=== PATIENT | male | born 1945 | race Caucasian/White ===

== ENCOUNTER 2019-04-09 18:32 | Inpatient (IN) | payer OTHER ==
[~2019-04-09] VITALS: Ht 177.8 cm; Wt 113.3 kg
[2019-04-09 19:03] LABS: BASOPHILS ABSOLUTE AUTO 0.05 K/mm3 (0.00-0.23); BASOPHILS PERCENT AUTO 0 % (0-2); EOSINOPHILS PERCENT AUTO 0 % (0-6); Hematocrit 52.1 % (37.0-53.0); Hemoglobin 17.4 g/dL (13.5-17.5); IMMATURE GRAN ABSOLUTE AUTO 0.12 K/mm3 (0.00-0.10); IMMATURE GRAN PERCENT AUTO 1 % (0-1); LYMPHOCYTES ABSOLUTE AUTO 1.28 K/mm3 (0.84-5.20); LYMPHOCYTES PERCENT AUTO 7 % (21-46); MONOCYTES PERCENT AUTO 5 % (4-13); Mean Corpuscular HGB 32.6 pg (26.0-34.0); Mean Corpuscular HGB Conc 33.4 g/dL (31.5-36.5); Mean Corpuscular Volume 98 fL (80-100); Mean Platelet Volume 9.5 fL (9.1-12.4); NEUTROPHILS ABSOLUTE AUTO 16.33 K/mm3 (1.96-9.15); NEUTROPHILS PERCENT AUTO 87 % (41-73); Platelet Count 243 K/mm3 (150-400); RDW Coefficient Variation 12.1 % (11.7-14.2); RDW Standard Deviation 43.9 fL (35.1-46.3); Red Blood Cell Count 5.33 M/mm3 (4.30-5.90); White Blood Cell Count 18.78 K/mm3 (4.00-11.30)
[2019-04-09] MEDS ORDERED: METO100 PO (19:06)
[2019-04-09] MEDS ORDERED: AMLODIPINE BESY10 MG PO (19:06)
[2019-04-09 19:17] LABS: International Normalized Ratio 1.07; Prothrombin Time Results 11.4 Sec (9.7-11.5)
[2019-04-09 19:20] LABS: Alanine Aminotransfer (ALT/SGP 34 U/L (12-78); Albumin, Blood 3.6 g/dL (3.4-5.0); Albumin/Globulin Ratio 0.7 (0.8-1.8); Alk Phos 57 U/L (50-136); Anion Gap 7 mmol/L (6-16); Aspartate Aminotrans (AST/SGOT 132 U/L (12-37); Bilirubin, Total 1.3 mg/dL (0.1-1.0); Blood Urea Nitrogen 19 mg/dL (8-24); Bun/Creatinine Ratio 15.2 (12.0-20.0); CO2, Blood 25 mmol/L (21-32); Calcium, Blood 9.1 mg/dL (8.5-10.1); Chloride, Blood 103 mmol/L (98-108); Creatinine, Blood 1.25 mg/dL (0.60-1.20); Ethanol (Alcohol), Blood, Med <3 mg/dL; Glomerular Filtration Rate >60 (60-); Glucose, Blood 168 mg/dL (70-99); Potassium, Blood 4.7 mmol/L (3.5-5.5); Sodium, Blood 135 mmol/L (136-145); Total Protein, Blood 8.6 g/dL (6.4-8.2)
[2019-04-09 19:57] LABS: Troponin I 0.075 ng/mL (0.000-0.040)
[2019-04-09 20:32] LABS: Creatine Kinase MB 61.4 ng/mL (0.0-3.6)
[2019-04-10 02:24] LABS: CHOL/HDL RATIO 7.3; Cholesterol 196 mg/dL (50-200); HDL Cholesterol 27 mg/dL (>39); LDL/HDL RATIO 4.9; Low Density Lipoprotein Chol 133 mg/dL (0-110); Triglycerides 181 mg/dL (30-160); Troponin I 0.178 ng/mL (0.000-0.040); Very Low Density Lipoprot Chol 36 mg/dL (6-32)
[2019-04-10 02:35] LABS: CPK Creatine Kinase 5851 U/L (39-308)
--- NOTE | 2019-04-10 06:30 | NUR ---
SHIFT SUMMARY PT ARRIVED FROM ER IN DISCOMFORT. ORDERS FOR PAIN MEDS WERE OBTAINED AND PT EVENTUALLY BECAME COMFORTABLE. PT HAS SHARP PAIN NOTED IN MID L FA AREA. PT IS CONCERNED THAT HE MAY HAVE A FX. PT HAS GOOD SENSATION IN L ARM AND LEG. PT HAS SOME NOTED GROSS MOVEMENT ON L SIDE. PT HAS NOTED R SIDE FACIAL DROOP. PT HAS REMAINED NPO. PT DENIES ANY SOB. PT CURRENTLY RESTING AND IN NO DISTRESS. CALL LIGHT IN REACH.
--- NOTE | 2019-04-10 12:57 | NUR ---
ECHOCARDIOGRAM COMPLETE
--- NOTE | 2019-04-10 14:14 | NUR ---
PATIENT COMPLAINED OF LEFT ARM PAIN THIS AFTERNOON. TREATED PER EMAR. IS AT THE BEDSIDE. TROPONIN IS TRENDING DOWN. PATIENT IS ABLE TO MOVE FINGERS SLIGHTLY. NO LOSS OF SENSATION IN HIS LEFT EXTREMITIES. PATIENT IS ABLE TO MOVE HIS LEFT LOWER EXTREMITY SLIGHTLY, COMPLAINS OF HIS LLE TWITCHING. PHYSICAL THERAPY PLANS TO WORK WITH THE PATIENT TODAY.
--- NOTE | 2019-04-10 15:58 | NUR ---
PATIENT IS ALERT AND ORIENTED AND COOPERATIVE WITH CARE. COMLAINTS OF PAIN IN HIS LEFT UPPER EXTREMITY, TREATED PER EMAR. HAS BEEN AT THE BEDSIDE THROUGHOUT THE DAY. THE GAVE THE PATIENT A BEDBATH TODAY. PATIENT WORKED WITH ST AND PT TODAY. WILL CONTINUE TO MONITOR.
--- NOTE | 2019-04-10 17:32 | NUR ---
PATIENT'S VITALS TAKEN TONIGHT. BP IS 162/76. RN CALLED DR. HAQUE WHO ORDERED METOPROLOL AND NORVASC FOR THE PATIENT. METOPROLOL 50MG ONE TIME DOSE WAS GIVEN AT 17:20. WILL RECHECK BP.
--- NOTE | 2019-04-11 04:35 | NUR ---
SHIFT SUMMARY PT HAS NOT MUCH URINE OUTPUT THIS SHIFT. PT BLADDER SCANNED WITH ONLY 111 ML NOTED. PT HAS BEEN TAKING IN PO FLUIDS. PT HAD NO OTHER ISSUES NOTED. PT HAS GOOD SIDEROGRAPHER IN LEFT HAND BUT IS UNABLE TO OPEN HAND AFTER GRIPPING. PT CONTINUES TO HAVE DISCOMFORT IN L ARM. TX PER EMAR. PT CURRENTLY AWAKE WATCHING TV. PT IN NO DISTRESS. CALL LIGHT IN REACH.
[2019-04-11 05:30] LABS: BASOPHILS ABSOLUTE AUTO 0.07 K/mm3 (0.00-0.23); BASOPHILS PERCENT AUTO 1 % (0-2); EOSINOPHILS PERCENT AUTO 2 % (0-6); Hematocrit 48.3 % (37.0-53.0); Hemoglobin 16.3 g/dL (13.5-17.5); IMMATURE GRAN ABSOLUTE AUTO 0.04 K/mm3 (0.00-0.10); IMMATURE GRAN PERCENT AUTO 0 % (0-1); LYMPHOCYTES ABSOLUTE AUTO 2.16 K/mm3 (0.84-5.20); LYMPHOCYTES PERCENT AUTO 19 % (21-46); MONOCYTES ABSOLUTE AUTO 1.33 K/mm3 (0.16-1.47); MONOCYTES PERCENT AUTO 11 % (4-13); Mean Corpuscular HGB 32.4 pg (26.0-34.0); Mean Corpuscular HGB Conc 33.7 g/dL (31.5-36.5); Mean Corpuscular Volume 96 fL (80-100); Mean Platelet Volume 9.6 fL (9.1-12.4); NEUTROPHILS ABSOLUTE AUTO 7.84 K/mm3 (1.96-9.15); NEUTROPHILS PERCENT AUTO 67 % (41-73); Platelet Count 218 K/mm3 (150-400); RDW Coefficient Variation 12.1 % (11.7-14.2); RDW Standard Deviation 42.5 fL (35.1-46.3); Red Blood Cell Count 5.03 M/mm3 (4.30-5.90); White Blood Cell Count 11.64 K/mm3 (4.00-11.30)
[2019-04-11 05:59] LABS: Anion Gap 8 mmol/L (6-16); Blood Urea Nitrogen 18 mg/dL (8-24); Bun/Creatinine Ratio 18.3 (12.0-20.0); CO2, Blood 22 mmol/L (21-32); Calcium, Blood 8.3 mg/dL (8.5-10.1); Chloride, Blood 106 mmol/L (98-108); Creatinine, Blood 0.98 mg/dL (0.60-1.20); Glomerular Filtration Rate >60 (60-); Glucose, Blood 109 mg/dL (70-99); Potassium, Blood 3.8 mmol/L (3.5-5.5); Sodium, Blood 136 mmol/L (136-145)
--- NOTE | 2019-04-11 18:31 | NUR ---
SUMMARY: NO CHANGE TODAY, VSS. MEDICATED FOR L ARM PAIN PRN. ABLE TO WORK WITH PHYSCIAL THERAPY, SEE NOTES. PT AT BEDSIDE THE MAJORITY OF DAY, HELPING WITH CARE. REPOSITIONED PRN AND FOR COMFORT. NO ACUTE CHANGE. WILL REPORT TO SUYAPA RN.
--- NOTE | 2019-04-12 04:37 | NUR ---
NOC SHIFT SUMMARY PT IS PLEASANT AND COOPERATIVE WITH CARE AAOX4. RESP EVEN AND UNLABORED. ADMITTED FOR CVA AND UNABLE TO MOVE LUE AND LLE WITH EXCEPTION THAT HE CAN SKI TOPPER WITH HIS LEFT HAND. TREATED FOR PAIN MULTIPLE TIMES THIS SHIFT PER EMAR. DURING FAUCET POLISHER VITALS PT WAS NOTED TO HAVE PULSE OF 51 PER TELE MONITOR. HOWEVER HIS RADIAL PULSE IS 34 WHEN PALPATED. CALLED TO TELE MONITOR AND SHE RELATES PT HAVING FREQENT PVC'S. BP IS STABLE AND PT COMPLETELY ASYMPTOMATIC. CALLED TO HOSPITALIST BARRON. INFORMED HIM OF THIS. ADVISED TO CONTINUE MONITORING. PT IS PRESENTLY SLEEPING LIGHTLY. AWAKENS EASILY TO VOICE AND APPEARS IN NO ACUTE DISTRESS. WILL CONTINUE TO MONITOR.
--- NOTE | 2019-04-12 17:22 | NUR ---
SHIFT SUMMARY- PT A/O, COOPERATIVE AND PLESANT. PT HAS LEFT SIDED DEFICITS FROM CVA. PAIN IN THE RIGHT ARM BEING TREATED PER MAR. PT WORKED WITH PT AND OT TODAY. PT RECIEVING IV ANTIBIOTICS. PT WILL BE A SNF PLACMENT. EATING AND DRINKING WELL. WAS AT THE BEDSIDE THROUGH THE A MAJORITY OF THIS SHIFT. REPOSITIONING PT FREQUENTLY TO ALEVIATE PRESSURE ON THE ARM. SOME REDDNESS ON THE BUTTOCK, PLACED PREVENTATIVE FOAM DRESSING. CHANGED DRESSING ON THE LEFT ARM, WHERE A SKIN TEAR IS PRESENT.
--- NOTE | 2019-04-13 07:06 | NUR ---
SHIFT SUMMARY: A/OX4. MAKES NEEDS KNOWN. REPORTING ONGOING R ARM PAIN. STATES PRN ANALGESICS HELP SOME. SLIGHT MOVEMENT IN FINGERS, VERY WEAK JACK FRAME TENDER COMPARED TO R HAND. NO MOVEMENT IN L FOOT. R FOOT WEAK. L HAND CONT WITH +4 PITTING EDEMA. DRESSING TO L ELBOW C/D/I. SLEPT INTERMITTENTLY THROUGH THE NIGHT. BED LOW, CALL BUTTON IN REACH.
--- NOTE | 2019-04-13 13:00 | NUR ---
Permission given by patient for Jeffrey SRN on 04/13/2019 to help with care.
--- NOTE | 2019-04-13 14:30 | NUR ---
APPROVAL FOR CARE PATIENT GAVE THIS [facility] [place] [facility] PERMISSION TO PROVIDE CARE ON 04/13/2019.
--- NOTE | 2019-04-13 18:01 | NUR ---
SUMMARY PT SITTING UP IN BED EATING DINNER WITH HIS , PT HAS BEEN PLEASANT AND COOPERATIVE WITH CARE T/O THE DAY, MED PER EMAR FOR PAIN, PT HAS WORKED WITH PT/OT, DISCHARGE PLANNERS ARE WORKING ON DISCHARGE TO IRU, VSS, NO ACUTE CHANGES, WILL CONT TO MONITOR
--- NOTE | 2019-04-14 04:16 | NUR ---
PHOTOLITHOGRAPHER SUMMARY very painful left arm. medicated at available intervals with roxycodone and fentanyl for breakthrough. A&OX4, able to perform minimal gross movement left arm. left leg still flaccid. XL mushy bowel movement last night. notable right facial droop, speech slurred, but able to swallow pills whole. Looking forward to getting strong enough to make it home
--- NOTE | 2019-04-14 17:08 | NUR ---
SUMMARY PT SITTING UP IN BED VISITING WITH HIS , PT HAS BEEN PLEASANT AND COOPERATIVE WITH CARE, ASSISTS WITH ADL'S, PT HAS BEEN MED PER EMAR FOR PAIN, PT HAS WORKED WITH PT/OT, BONNIE WELL, VSS, NO COMPLAINTS, WILL CONT TO MONITOR
--- NOTE | 2019-04-15 06:01 | NUR ---
SHIFT SUMMARY PATIENT ALERT AND ORIENTED ALL NIGHT. TOWARDS THE BEGINNING OF SHIFT HIS O2 SATS WERE FOUND TO BE IN THE MID 80S, PATIENT PLACED ON 2 LITERS O2 VIA NASAL CANULA WHICH BROUGHT HIS SATS UP TO 91-93%. IV IN HIS RIGHT WRIST INFILTRATED AND WAS REMOVED. NEW IV PLACED IN PATIENT'S RIGHT UPPER ARM THAT IS PATENT AND FLUSHES WELL. TELEMETRY SHOW PATIENT TO BE HAVING SINUS BRADYCARDIA. BED IN LOWEST POSITION WITH WHEELS LOCKED. CALL LIGHT AND BELONGINGS WITHIN REACH. REPORT GIVEN TO ONCOMING RN.
--- NOTE | 2019-04-16 04:34 | NUR ---
SHIFT SUMMARY PATIENT ALERT AND ORIENTED. HE HAD COMPLAINTS OF PAIN DUE TO HIS LEFT ARM BUT DID NOT REQUEST ANY PRN PAIN MEDICATION AND WAS ABLE TO SLEEP WELL MOST OF THE NIGHT. PATIENT REMAINS ON 2 LITERS O2 VIA NASAL CANULA DUE TO LOW OXYGEN SATURATION. DRESSING CHANGED TO ABRASION ON LEFT ELBOW. IV PATENT AND FLUSHED. BED IN LOWEST POSITION WITH WHEELS LOCKED. CALL LIGHT AND BELONGINGS WITHIN REACH. REPORT GIVEN TO ONCOMING RN.
[2019-04-16 05:35] LABS: Anion Gap 5 mmol/L (6-16); Blood Urea Nitrogen 21 mg/dL (8-24); Bun/Creatinine Ratio 16.8 (12.0-20.0); CO2, Blood 27 mmol/L (21-32); Calcium, Blood 8.3 mg/dL (8.5-10.1); Chloride, Blood 104 mmol/L (98-108); Creatinine, Blood 1.25 mg/dL (0.60-1.20); Glomerular Filtration Rate >60 (60-); Glucose, Blood 101 mg/dL (70-99); Potassium, Blood 4.7 mmol/L (3.5-5.5); Sodium, Blood 136 mmol/L (136-145)
[2019-04-16] MEDS ORDERED: ACET325 PO (15:18)
[2019-04-16] MEDS ORDERED: ASPI81CH PO (15:19)
[2019-04-16] MEDS ORDERED: AMOCLA875 PO (15:19)
[2019-04-16] MEDS ORDERED: CLOP75 PO (15:20)
[2019-04-16] MEDS ORDERED: ATOR20 PO (15:20)
[2019-04-16] MEDS ORDERED: LISI20 PO (15:20)
[2019-04-16] MEDS ORDERED: Florastor250 MG PO (15:21)
[2019-04-16] MEDS ORDERED: Pedi-Dri 100,0060 GM TOP (15:21)
--- NOTE | 2019-04-16 16:19 | NUR ---
SHIFT SUMMARY PT AWAKE WATCHING TV DURING SHIFT REPORT. DENIED NEEDS AT THAT TIME. LATER REQUESTED PAIN MEDICATION FOR L ARM PAIN. PT ADMITTED WITH ACUTE CVA, AND REPORTED LAYING ON HIS L ARM FOR 10 HRS. PT DENIED FALLING, BUT REPORTED BRUISING A RESULT OF GOING DOWN. PT'S IN RM OFF AND ON TODAY. ASSISTED WITH PT'S CARE. PT ON BED DANIEL FOR BM A COUPLE OF TIMES. USING URINAL TO VOID. L SIDE FLACCID, BUT REPORTED SM AMT OF L FINGER MOMENT TODAY WITH P/T. NO MOVEMENT WITH LLE THOUGH. DR JAVED IN TO SEE PT TODAY. D/C ORDERS PLACED. CM ASSISTED WITH D/C TRANSPORTATION TO FOR REHAB. REPORT CALLED TO ALVERTO KWOK. SLIDE TX TO [facility] FOR TX. IV TO [facility] D/C'D WNL'S. AT AND FOLLOWED TO .
== END 2019-04-16 16:04 | disposition home or self-care (01) | DRG 64 ==
LOC: ER 18:32 → MEDS 21:20
PROVIDERS: Emergency Medicine; Internal Medicine; ADMIT Hospitalist
DX: I63.9 Cerebral infarction, unspecified (principal); J96.01 Acute respiratory failure with hypoxia; J69.0 Pneumonitis due to inhalation of food and vomit; I24.8 Other forms of acute ischemic heart disease; R53.1 Weakness; I25.10 Atherosclerotic heart disease of native coronary artery without angina pectoris; Z87.891 Personal history of nicotine dependence; T79.6XXA Traumatic ischemia of muscle, initial encounter; I10 Essential (primary) hypertension
CPT/HCPCS: 36415; 70450; 70496; 70498; 70551; 71045; 80048; 80053; 80061; 82550; 82553; 82947; 83036; 83605; 84145; 84484; 85025; 85610; 85730; 87040; 92610; 93005; 93010; 93306; 96361; 96365-59; 97110; 97112; 97162; 97166; 97530; 99285-25; A9270; G0480; J0696; J1650; J2405; J3010; J7030; J7050; Q9967

== ENCOUNTER → 2019-06-16 | Outpatient (CLI) | payer OTHER ==
[~2019-06-16] MED LIST: ACET325 PO; AMLODIPINE BESY10 MG PO; AMOCLA875 PO; ASPI81CH PO; ATOR20 PO; CLOP75 PO; Florastor250 MG PO; LISI20 PO; METO100 PO; Pedi-Dri 100,0060 GM TOP
[2019-06-16 15:33] LABS: BASOPHILS ABSOLUTE AUTO 0.09 K/mm3 (0.00-0.23); BASOPHILS PERCENT AUTO 1 % (0-2); EOSINOPHILS ABSOLUTE AUTO 0.66 K/mm3 (0.00-0.68); EOSINOPHILS PERCENT AUTO 6 % (0-6); Hematocrit 47.4 % (37.0-53.0); Hemoglobin 15.7 g/dL (13.5-17.5); IMMATURE GRAN ABSOLUTE AUTO 0.06 K/mm3 (0.00-0.10); IMMATURE GRAN PERCENT AUTO 1 % (0-1); LYMPHOCYTES ABSOLUTE AUTO 2.91 K/mm3 (0.84-5.20); LYMPHOCYTES PERCENT AUTO 28 % (21-46); MONOCYTES ABSOLUTE AUTO 0.72 K/mm3 (0.16-1.47); MONOCYTES PERCENT AUTO 7 % (4-13); Mean Corpuscular HGB 31.5 pg (26.0-34.0); Mean Corpuscular HGB Conc 33.1 g/dL (31.5-36.5); Mean Corpuscular Volume 95 fL (80-100); Mean Platelet Volume 9.7 fL (9.1-12.4); NEUTROPHILS ABSOLUTE AUTO 5.89 K/mm3 (1.96-9.15); NEUTROPHILS PERCENT AUTO 57 % (41-73); Platelet Count 319 K/mm3 (150-400); RDW Coefficient Variation 12.6 % (11.7-14.2); Red Blood Cell Count 4.98 M/mm3 (4.30-5.90); White Blood Cell Count 10.33 K/mm3 (4.00-11.30)
[2019-06-16 15:46] LABS: Alanine Aminotransfer (ALT/SGP 27 U/L (12-78); Albumin, Blood 3.1 g/dL (3.4-5.0); Albumin/Globulin Ratio 0.6 (0.8-1.8); Alk Phos 101 U/L (40-126); Anion Gap 5 mmol/L (6-16); Aspartate Aminotrans (AST/SGOT 23 U/L (12-37); Bilirubin, Total 1.4 mg/dL (0.1-1.0); Blood Urea Nitrogen 13 mg/dL (8-24); Bun/Creatinine Ratio 10.9 (12.0-20.0); CO2, Blood 30 mmol/L (21-32); Chloride, Blood 102 mmol/L (98-108); Creatinine, Blood 1.19 mg/dL (0.60-1.20); Globulin, Blood 5.6 g/dL (2.2-4.0); Glomerular Filtration Rate >60 (60-); Glucose, Blood 90 mg/dL (70-99); Potassium, Blood 4.2 mmol/L (3.5-5.5); Sodium, Blood 137 mmol/L (136-145); Total Protein, Blood 8.7 g/dL (6.4-8.2)
[2019-06-16 15:47] LABS: Troponin I <0.017 ng/mL (0.000-0.040)
== END | disposition home or self-care (01) ==
LOC: LAB EV 15:29 → LAB SHORT 15:29
PROVIDERS: Physician Assistant Medical
DX: R00.1 Bradycardia, unspecified (principal)
CPT/HCPCS: 80053; 83880; 84484; 85025

== ENCOUNTER → 2019-07-27 | Outpatient (CLI) | payer OTHER ==
[2019-07-27 12:45] LABS: BASOPHILS ABSOLUTE AUTO 0.09 K/mm3 (0.00-0.23); BASOPHILS PERCENT AUTO 1 % (0-2); EOSINOPHILS ABSOLUTE AUTO 0.65 K/mm3 (0.00-0.68); EOSINOPHILS PERCENT AUTO 6 % (0-6); Hematocrit 46.3 % (37.0-53.0); IMMATURE GRAN ABSOLUTE AUTO 0.03 K/mm3 (0.00-0.10); IMMATURE GRAN PERCENT AUTO 0 % (0-1); LYMPHOCYTES ABSOLUTE AUTO 2.35 K/mm3 (0.84-5.20); LYMPHOCYTES PERCENT AUTO 22 % (21-46); MONOCYTES ABSOLUTE AUTO 0.85 K/mm3 (0.16-1.47); MONOCYTES PERCENT AUTO 8 % (4-13); Mean Corpuscular HGB 31.6 pg (26.0-34.0); Mean Corpuscular HGB Conc 32.4 g/dL (31.5-36.5); Mean Corpuscular Volume 98 fL (80-100); Mean Platelet Volume 10.2 fL (9.1-12.4); NEUTROPHILS ABSOLUTE AUTO 6.51 K/mm3 (1.96-9.15); NEUTROPHILS PERCENT AUTO 62 % (41-73); Platelet Count 138 K/mm3 (150-400); RDW Coefficient Variation 12.5 % (11.7-14.2); RDW Standard Deviation 45.7 fL (35.1-46.3); Red Blood Cell Count 4.74 M/mm3 (4.30-5.90); White Blood Cell Count 10.48 K/mm3 (4.00-11.30)
[2019-07-27 12:50] LABS: LDL/HDL RATIO 2.5
[2019-07-27 12:51] LABS: Alanine Aminotransfer (ALT/SGP 26 U/L (12-78); Albumin, Blood 3.6 g/dL (3.4-5.0); Albumin/Globulin Ratio 0.7 (0.8-1.8); Alk Phos 75 U/L (50-136); Anion Gap 6 mmol/L (6-16); Aspartate Aminotrans (AST/SGOT 16 U/L (12-37); Bilirubin, Total 1.4 mg/dL (0.1-1.0); Blood Urea Nitrogen 32 mg/dL (8-24); Bun/Creatinine Ratio 24.8 (12.0-20.0); CHOL/HDL RATIO 4.1; CO2, Blood 29 mmol/L (21-32); Chloride, Blood 104 mmol/L (98-108); Cholesterol 127 mg/dL (50-200); Creatinine, Blood 1.29 mg/dL (0.60-1.20); Glomerular Filtration Rate 58 (60-); Glucose, Blood 86 mg/dL (70-99); HDL Cholesterol 31 mg/dL (>39); Low Density Lipoprotein Chol 76 mg/dL (0-110); Potassium, Blood 3.8 mmol/L (3.5-5.5); Sodium, Blood 139 mmol/L (136-145); Total Protein, Blood 8.6 g/dL (6.4-8.2); Triglycerides 98 mg/dL (30-160); Very Low Density Lipoprot Chol 19 mg/dL (6-32)
== END | disposition home or self-care (01) ==
LOC: LAB 12:19 → LAB SHORT 12:19
PROVIDERS: Internal Medicine Interventional Cardiology
DX: E78.5 Hyperlipidemia, unspecified (principal); F17.210 Nicotine dependence, cigarettes, uncomplicated; I69.354 Hemiplegia and hemiparesis following cerebral infarction affecting left non-dominant side; A04.72 Enterocolitis due to Clostridium difficile, not specified as recurrent; I10 Essential (primary) hypertension; R13.10 Dysphagia, unspecified; Z87.01 Personal history of pneumonia (recurrent)
CPT/HCPCS: 80053; 80061; 83880; 85025

== ENCOUNTER → 2019-09-01 | Outpatient (CLI) | payer OTHER ==
[2019-09-01 11:16] LABS: Anion Gap 3 mmol/L (6-16); Blood Urea Nitrogen 21 mg/dL (8-24); Bun/Creatinine Ratio 19.4 (12.0-20.0); CO2, Blood 31 mmol/L (21-32); Calcium, Blood 9.3 mg/dL (8.5-10.1); Chloride, Blood 103 mmol/L (98-108); Creatinine, Blood 1.08 mg/dL (0.60-1.20); Glomerular Filtration Rate >60 (60-); Glucose, Blood 92 mg/dL (70-99); Magnesium, Blood 2.3 mg/dL (1.6-2.4); Sodium, Blood 137 mmol/L (136-145)
== END | disposition home or self-care (01) ==
LOC: LAB 10:50 → LAB SHORT 10:50
PROVIDERS: Internal Medicine Interventional Cardiology
DX: I69.354 Hemiplegia and hemiparesis following cerebral infarction affecting left non-dominant side (principal); A04.72 Enterocolitis due to Clostridium difficile, not specified as recurrent; E78.5 Hyperlipidemia, unspecified; R13.10 Dysphagia, unspecified; I10 Essential (primary) hypertension; Z91.81 History of falling; Z87.01 Personal history of pneumonia (recurrent)
CPT/HCPCS: 80048; 83735